=== PATIENT | female | born 1960 | race Caucasian/White ===

== ENCOUNTER 2024-07-20 12:39 | Emergency (ER) | payer BC ==
[~2024-07-20] VITALS: Ht 165.1 cm; Wt 63.0 kg
[2024-07-20 12:55] VITALS: BP 145/100
[2024-07-20] MEDS ORDERED: LOSARTAN POTASS50 M1 PO (13:07)
[2024-07-20] MEDS ORDERED: Synthroid,Levo25 MCG PO (13:08)
[2024-07-20] MEDS ORDERED: ROSUVASTATIN CA20 MG PO (13:08)
[2024-07-20] MEDS ORDERED: DICLOFENAC SOD75 MG PO (13:08)
[2024-07-20] MEDS ORDERED: PANTOPRAZOLE SO40 MG PO (13:08)
[2024-07-20] MEDS ORDERED: Ondansetron Hydrochloride 4 MG/2 ML VIAL IV ONE (13:15)
[2024-07-20] MEDS ORDERED: SODIUM CHLORIDE 0.9% 1,000 ML IV ONE (13:15)
[2024-07-20 13:30] LABS: BASO # 0.1 10*3/uL (0.0-0.1); BASO % 0.6 % (0.0-1.0); EOS % 0.2 % (1.0-4.0); HEMATOCRIT 40.8 % (37.0-47.0); MEAN CELL VOLUME 87.7 fl (81.0-99.0); MEAN CORPUSCULAR HGB 28.8 pg (27.0-31.0); MEAN CORPUSCULAR HGB CONC 32.8 g/dl (33.0-37.0); MEAN PLATELET VOLUME 10.1 fl (9.6-12.3); MONO # 0.7 10*3/uL (0.1-1.0); MONO % 5.5 % (3.0-9.0); NEUT # 9.9 10*3/uL (2.3-7.9); NEUT % 78.1 % (47.0-73.0); PLATELET COUNT AUTOMATED 280 10*3/uL (130-400); RED BLOOD COUNT 4.65 10*6/uL (4.10-5.10); RED CELL DISTRI WIDTH 14.1 % (0-14.5); WHITE BLOOD COUNT 12.6 10*3/uL (4.8-10.8)
[2024-07-20 13:41] LABS: ACT PARTIAL THROMBO TIME 24.3 SECONDS (20.0-32.1)
[2024-07-20 13:50] LABS: ALKALINE PHOSPHATASE 41 U/L (46-116); BUN 17 mg/dl (9-23); CHLORIDE 104 mmol/L (98-107); LIPASE 39 U/L (12-53); POTASSIUM 3.6 mmol/L (3.4-5.1); SGPT/ALT 24 U/L (5-49); TOTAL PROTEIN 7.7 gm/dL (6.0-8.0)
[2024-07-20] MEDS ORDERED: IOHEXOL 300 MG/ML 100 ML VIAL ONE (13:56)
[2024-07-20] MEDS ORDERED: diphenhydrAMINE hydrochloride 50 MG/ML VIAL IV ONE (14:35)
[2024-07-20] MEDS ORDERED: Ketorolac Tromethamine 15 MG/ML VIAL IV ONE (14:35)
[2024-07-20] MEDS ORDERED: ACETAMINOPHEN 325 MG TAB PO ONE (16:10)
[2024-07-20] MEDS ORDERED: CIPRO500 MG PO (16:11)
[2024-07-20] MEDS ORDERED: METRONIDAZOLE500 M1 PO (16:11)
== END 2024-07-20 16:35 | disposition home or self-care (01) ==
LOC: ED 12:39
PROVIDERS: Internal Medicine
DX: K52.9 Noninfective gastroenteritis and colitis, unspecified (principal); R51.9 Headache, unspecified; R11.2 Nausea with vomiting, unspecified; Z88.0 Allergy status to penicillin; Z88.1 Allergy status to other antibiotic agents; Z79.899 Other long term (current) drug therapy